=== PATIENT | male | born 2000 | race Caucasian/White ===

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

== ENCOUNTER 2021-04-17 14:13 | Emergency (ER) | payer OTHER, SELFPAY ==
[2021-04-17 16:32] LABS: Absolute Lymphocytes (CBC) 2.2 K/uL (0.7-4.9); Basophils % 0.7 % (0-1.3); Hematocrit 40.2 % (39.6-49.0); Lymphocytes % 21.5 % (15.3-44.8); MPV 8.7 fL (7.6-11.3); RBC Red Blood Cell Count 5.11 M/uL (4.33-5.43)
[2021-04-17 16:49] LABS: ALT/SGPT 36 U/L (12-78); AST/SGOT 14 U/L (15-37); Albumin 3.6 g/dL (3.4-5.0); Alkaline Phosphatase 150 U/L (45-117); BUN Blood Urea Nitrogen 8 mg/dL (7-18); Bicarbonate 28 mmol/L (21-32); Bilirubin Direct < 0.1 mg/dL (0-0.2); Bilirubin Total 0.3 mg/dL (0.2-1.0); Glucose Level 134 mg/dL (74-106); Lipase 76 U/L (73-393); Potassium 3.6 mmol/L (3.5-5.1); Protein, Total 8.4 g/dL (6.4-8.2); Sodium Level 139 mmol/L (136-145)
--- NOTE | 2021-04-17 17:08 | RAD REPORT ---
EXAM DESCRIPTION: Isaiah Single View04/17/2021 4:47 pm CLINICAL HISTORY: sob COMPARISON: 2013 FINDINGS: The lungs appear clear of acute infiltrate. The heart is normal size IMPRESSION: No acute abnormalities displayed
--- NOTE | 2021-04-17 17:24 | RAD REPORT ---
EXAM DESCRIPTION: CT - Abdomen Pelvis W Contrast - 04/17/2021 4:56 pm CLINICAL HISTORY: Abdominal pain COMPARISON: none. TECHNIQUE: Computed axial tomography of the abdomen pelvis was obtained. 100 cc Isovue-300 was admin istered intravenously. Oral contrast was not requested which limits evaluation of bowel. All CT scans are performed using dose optimization technique as appropriate and may include automated exposure control or mA/KV adjustment according to patient size. FINDINGS: The liver, spleen, pancreas, adrenal and kidneys appear unremarkable. There is no evidence of diverticulitis. Normal appendix Small hiatal hernia. Mild stranding within the central mesentery. IMPRESSION: Mild stranding within the central mesentery probably a mesenteritis
[2021-04-17 17:47] LABS: SARS-COV-2 RT PCR NEGATIVE (NEGATIVE)
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
--- NOTE | 2021-04-17 18:28 | EDPHYS ---
Physician Documentation [facility] Name: Mike Moon Age: 20 yrs Sex: Male : 2000 Arrival Date: 04/17/2021 Time: 14:20 Bed 13 Private MD: YAIMA Physician Marlon Lopez HPI: 04/17 15:55 This 20 yrs old Male presents to ER via Ambulatory with complaints of Cough, Breathing jmm Difficulty, Vomiting. 15:55 The patient or guardian reports cough. Onset: The symptoms/episode began/occurred jmm gradually, 2 day(s) ago. Modifying factors: The symptoms are alleviated by nothing, the symptoms are aggravated by cough. Associated signs and symptoms: Pertinent positives: chest pain, vomiting. The patient has not experienced similar symptoms in the past. Historical: - Allergies: 14:51 Varicella Virus Vaccine Live; ld1 - Home Meds: 14:51 None [Active]; ld1 - PMHx: 14:51 Fractured Skull; fractured collar bone; ld1 - PSHx: 14:51 None; ld1 - Immunization history:: Adult Immunizations not up to date, Client reports receiving the 2nd dose of the Covid vaccine. - Social history:: Smoking status: Patient denies any tobacco usage or history of. Patient/guardian denies using alcohol. ROS: 15:55 Constitutional: Positive for body aches, chills. jmm 15:55 Respiratory: Positive for cough. 15:55 Abdomen/GI: Positive for abdominal pain, nausea and vomiting. 15:55 All other systems are negative. Exam: 15:55 Constitutional: This is a well developed, well nourished patient who is awake, alert, jmm and in no acute distress. Head/Face: atraumatic. Eyes: EOMI, no conjunctival erythema appreciated ENT: Moist Mucus Membranes Neck: Trachea midline, Supple Chest/axilla: Normal chest wall appearance and motion. Cardiovascular: Regular rate and rhythm. No edema appreciated Respiratory: Normal respirations, no respiratory distress appreciated 15:55 Back: Normal ROM Skin: General appearance color normal MS/ Extremity: Moves all extremities, no obvious deformities appreciated, no edema noted to the lower extremities Neuro: Awake and alert, normal gait Psych: Behavior is normal, Mood is normal, Patient is cooperative and pleasant 15:55 Abdomen/GI: Inspection: abdomen appears normal, Bowel sounds: normal, Palpation: soft, moderate abdominal tenderness, in the right lower quadrant. Vital Signs: 14:50 BP 127 / 78; Pulse 100; Resp 18; Temp 98.4(O); Pulse Ox 100% on R/A; Weight 136.98 kg; ld1 Height 5 ft. 10 in. (177.80 cm); Pain 5/10; 16:05 BP 118 / 87; Pulse 102; Resp 20 S; Pulse Ox 99% on R/A; jg9 17:00 BP 97 / 71; Pulse 93; Resp 20; Pulse Ox 99% on R/A; jg9 18:24 BP 98 / 59; Pulse 104; Resp 17 S; Pulse Ox 99% on R/A; jg9 14:50 Body Mass Index 43.33 (136.98 kg, 177.80 cm) ld1 MDM: 15:31 Patient medically screened. jonathon 18:25 Data reviewed: vital signs, nurses notes. Counseling: I had a detailed discussion with cortney the patient and/or guardian regarding: the historical points, exam findings, and any diagnostic results supporting the discharge/admit diagnosis, lab results, radiology results, the need for outpatient follow up, to return to the emergency department if symptoms worsen or persist or if there are any questions or concerns that arise at home. ED course: Patient is alert and non toxic in appearance in the ED. Able to tolerate PO in the ED. Patient advised to follow up with pcp and otherwise given strict return precautions. . 12 15:55 Order name: Basic Metabolic Panel; Complete Time: 16:51 [facility] 04/17 15:55 Order name: CBC with Diff; Complete Time: 16:46 [facility] 04/17 15:55 Order name: Hepatic Function; Complete Time: 16:51 [facility] 04/17 15:55 Order name: Lipase; Complete Time: 16:51 [facility] 04/17 15:55 Order name: IV Saline Lock; Complete Time: 17:39 [facility] 04/17 15:55 Order name: Labs collected and sent; Complete Time: 17:39 [facility] 04/17 15:55 Order name: Chest Single View XRAY; Complete Time: 17:26 [facility] 04/17 15:55 Order name: CT Abd/Pelvis - IV Contrast Only; Complete Time: 17:26 [facility] 04/17 17:04 Order name: COVID-19/FLU A+B; Complete Time: 17:50 EDMS Administered Medications: No medications were administered Disposition: 04/18 10:33 Co-signature as Attending Physician, Marlon Lopez MD I agree with the assessment and jonathon plan of care. Disposition Summary: 04/17/21 18:28 Discharge Ordered Location: Home jm Condition: Stable jmm Diagnosis - Cough jmm - Vomiting jmm - Abdominal pain, unspecified jmm Followup: [facility] - With: Private Physician - When: 2 - 3 days - Reason: Recheck today's complaints, Continuance of care, Re-evaluation by your physician Discharge Instructions: - Discharge Summary Sheet jmm - Abdominal Pain, Adult jmm - Cough, Adult jmm - Vomiting, Adult jmm - Form - Return To Work jg9 Forms: - Medication Reconciliation Form jm - Thank You Letter jmm - Antibiotic Education jmm - Prescription Opioid Use [facility] Prescriptions: - promethazine-DM - take 10 milliliter by ORAL route every 4-6 hours; 200 milliliter; Refills: 0, jmm Product Selection Permitted Signatures: Dispatcher [employer] Marlon Brock MD MD cha Mickail, Joel, PA PA [facility] Sandee Hernández, RN RN ld1 Corrections: (The following items were deleted from the chart) 04/17 17:04 15:56 SARS-COV-2 RT PCR+MOL.[email or web address].BRZ ordered. EDOR EDOR 17:04 15:56 Influenza Screen (A \T\ B)+BA.LAB.BRZ ordered. EDOR EDMS
[2021-04-17 18:47] VITALS: TEMP 98.4
[2021-04-17 18:49] VITALS: O2SAT 99
[2021-04-17 18:52] VITALS: BP 98/59
== END 2021-04-17 18:42 | disposition home or self-care (01) ==
LOC: ER 14:13
DX: R05.9 Cough, unspecified (principal); R11.10 Vomiting, unspecified; R10.9 Unspecified abdominal pain; Z20.822 Contact with and (suspected) exposure to COVID-19
CPT/HCPCS: 85025; 80048; 36415; 80076; 83690; 0240U; 74177; 71045; 99283; Q9967

== ENCOUNTER 2021-05-27 21:44 | Emergency (ER) | payer OTHER ==
--- NOTE | 2021-05-27 23:19 | EDPHYS ---
Physician Documentation [facility] Name: Mike Moon Age: 21 yrs Sex: Male : 2000 Arrival Date: 05/27/2021 Time: 21:47 Bed Treatment Private MD: ED Physician Hima Enrique HPI: 05/27 22:39 This 21 yrs old Male presents to ER via Ambulatory with complaints of Hand Injury, Hand kb Swelling, Hand Pain. 22:39 The patient or guardian reports decreased range of motion, injury, pain, swelling, kb tenderness. The complaints affect the dorsum of right hand. Context: The problem was sustained at home, resulted from a direct blow. Onset: The symptoms/episode began/occurred just prior to arrival. Modifying factors: The symptoms are alleviated by nothing, the symptoms are aggravated by movement. Associated signs and symptoms: The patient has no apparent associated signs or symptoms. Severity of symptoms: At their worst the symptoms were mild, moderate, in the emergency department the symptoms are unchanged. The patient has not experienced similar symptoms in the past. The patient has not recently seen a physician. pt states he hit his hand on a piece of furniture. reports pain to dorsum of right hand near fifth digit. Historical: - Allergies: 22:15 Varicella Virus Vaccine Live; kd3 - Home Meds: 22:15 None [Active]; kd3 - PMHx: 22:15 fractured collar bone; Fractured Skull; Asthma; kd3 - PSHx: 22:15 None; kd3 - Immunization history:: Adult Immunizations not up to date. - Social history:: Smoking status: Reported history of juuling and/or vaping. ROS: 22:38 Constitutional: Negative for fever, chills, and weight loss. kb 22:38 MS/extremity: Positive for injury or acute deformity, pain, of the dorsum of right hand. 22:38 All other systems are negative. Exam: 22:39 Constitutional: This is a well developed, well nourished patient who is awake, alert, kb and in no acute distress. Head/Face: Normocephalic, atraumatic. Respiratory: Respirations even and unlabored. No increased work of breathing. Talking in full sentences Skin: Warm, dry with normal turgor. Normal color. Neuro: Awake and alert, GCS 15, oriented to person, place, time, and situation. Moves all extremities. Normal gait. Psych: Awake, alert, with orientation to person, place and time. Behavior, mood, and affect are within normal limits. 22:39 Musculoskeletal/extremity: Extremities: grossly normal except: noted in the dorsum of right hand: decreased ROM, pain, swelling, tenderness, ROM: limited active range of motion due to pain, in the right hand, Circulation is intact in all extremities. Sensation intact. Vital Signs: 22:11 BP 128 / 86; Pulse 98; Resp 16; Temp 98.1; Pulse Ox 100% on R/A; Weight 140.61 kg; kd3 Height 5 ft. 10 in. (177.80 cm); Pain 8/10; 22:11 Body Mass Index 44.48 (140.61 kg, 177.80 cm) kd3 Procedures: 05/28 00:35 Splinting: Splint applied to right hand using Orthoglass splint, applied by nurse. kb Examined by me, post splint application: neurovascular intact, 2+ distal pulses palpable, brisk capillary refill noted, Patient tolerated well. MDM: 05/27 22:13 Patient medically screened. kb 22:38 Data reviewed: vital signs, nurses notes. Data interpreted: Pulse oximetry: on room air kb is 100 %. Interpretation: normal. 23:17 Counseling: I had a detailed discussion with the patient and/or guardian regarding: the kb historical points, exam findings, and any diagnostic results supporting the discharge/admit diagnosis, radiology results, the need for outpatient follow up, a orthopedic surgeon, to return to the emergency department if symptoms worsen or persist or if there are any questions or concerns that arise at home. 05/27 22:13 Order name: Hand Right 3 View XRAY kb 05/27 23:17 Order name: Ulnar Gutter splint; Complete Time: 00:26 kb Administered Medications: No medications were administered Disposition: 05/28 02:00 Co-signature as Attending Physician, Hima Enrique MD. [email or web address] Disposition Summary: 05/27/21 23:18 Discharge Ordered Location: Home kb Condition: Stable kb Diagnosis - Avulsion fracture of proximal fifth metacarpal kb Followup: kb - With: Emergency Department - When: As needed - Reason: Worsening of condition Followup: kb - With: Private Physician - When: 2 - 3 days - Reason: Recheck today's complaints, Continuance of care, Re-evaluation by your physician Discharge Instructions: - Discharge Summary Sheet kb - Metacarpal Fracture, [id number] kb Forms: - Medication Reconciliation Form kb - Thank You Letter kb - Antibiotic Education kb - Prescription Opioid Use kb - Work release form lp1 Prescriptions: - Diclofenac Sodium 75 mg Oral tablet,delayed release (DR/EC) - take 1 tablet by ORAL route 2 times per day As needed; 30 tablet; Refills: 0, kb Product Selection Permitted Signatures: Dispatcher [employer] EDMS Mayuri Yanes, NUCLEAR MEDICINE CHIEF TECHNOLOGIST-C MAXIMILIANO-Hima Selby MD MD [email or web address] Carmencita Paz RN RN kd3
--- NOTE | 2021-05-27 23:19 | ER ---
Nurse's Notes [facility] Name: Mike Moon Age: 21 yrs Sex: Male : 2000 Arrival Date: 05/27/2021 Time: 21:47 Bed Treatment Private MD: Diagnosis: Avulsion fracture of proximal fifth metacarpal Presentation: 05/27 22:11 Chief complaint: Patient states: TAKING THE PUPPY FOR A WALK AND I SLIPPED AND HURT MY kd3 RIGHT HAND. Coronavirus screen: Vaccine status: Patient reports receiving the 2nd dose of the covid vaccine. Ebola Screen: No symptoms or risks identified at this time. Initial Sepsis Screen: Does the patient meet any 2 criteria? No. Patient's initial sepsis screen is negative. Does the patient have a suspected source of infection? No. Patient's initial sepsis screen is negative. Risk Assessment: Do you want to hurt yourself or someone else? Patient reports no desire to harm self or others. Onset of symptoms was May 27, 2021 at 21:00. 22:11 Method Of Arrival: Ambulatory kd3 22:11 Acuity: DARBY 4 kd3 Triage Assessment: 22:15 General: Appears in no apparent distress. Behavior is calm, cooperative, appropriate kd3 for age. Pain: Complains of pain in dorsal aspect of middle phalanx of right little finger, dorsal aspect of proximal phalanx of right little finger and dorsum of right hand. Musculoskeletal: Swelling present in right hand. Injury Description: Bruise sustained to right hand. Historical: - Allergies: 22:15 Varicella Virus Vaccine Live; kd3 - Home Meds: 22:15 None [Active]; kd3 - PMHx: 22:15 fractured collar bone; Fractured Skull; Asthma; kd3 - PSHx: 22:15 None; kd3 - Immunization history:: Adult Immunizations not up to date. - Social history:: Smoking status: Reported history of juuling and/or vaping. Screenin:18 Abuse screen: Denies threats or abuse. Denies injuries from another. Nutritional kd3 screening: No deficits noted. Tuberculosis screening: No symptoms or risk factors identified. Fall Risk None identified. Assessment: 05/28 00:30 Reassessment: Mayuri Yanes NP at bedside to assess splint and discuss discharge lp1 instructions and follow up for patient, significant other at bedside. 00:30 Neuro: Intact. Derm: Skin is pink, warm \T\ dry. Musculoskeletal: Circulation, motion, lp1 and sensation intact. Splint in place to right forearm/hand. Vital Signs: 05/27 22:11 BP 128 / 86; Pulse 98; Resp 16; Temp 98.1; Pulse Ox 100% on R/A; Weight 140.61 kg; kd3 Height 5 ft. 10 in. (177.80 cm); Pain 8/10; 22:11 Body Mass Index 44.48 (140.61 kg, 177.80 cm) kd3 ED Course: 21:47 Patient arrived in ED. jj6 21:53 Mayuri Yanes [facility]NP-C [facility]. kb 21:53 Hima Enrique MD is Attending Physician. kb 22:15 Triage completed. kd3 22:18 Arm band placed on left wrist. kd3 22:18 Patient has correct armband on for positive identification. kd3 22:18 No provider procedures requiring assistance completed. kd3 23:04 Hand Right 3 View XRAY In Process Unspecified. EDMS 05/28 00:06 Orthoglass splint: Ulnar gutter/Boxer splint applied on right forearm. oe 00:25 Josefina Guevara, RN is Primary Nurse. lp1 00:30 Patient did not have IV access during this emergency room visit. lp1 Administered Medications: No medications were administered Outcome: 05/27 23:18 Discharge ordered by . kb 05/28 00:30 Discharged to home ambulatory. lp1 Condition: good Discharge instructions given to patient, Instructed on discharge instructions, follow up and referral plans. medication usage, Demonstrated understanding of instructions, follow-up care, medications, splint care. 00:38 Patient left the ED. lp1 Signatures: Dispatcher [employer] EDNY Mayuri Yanes FNP-C DIRECTOR OF LOSS PREVENTION-Josefina Churchill, RN RN lp1 Hamilton Mcdermott Jennifer [email or web address] Carmencita Paz, RN RN kd3
[2021-05-28 00:43] VITALS: BP 128/86; TEMP 98.1; O2SAT 100
--- NOTE | 2021-05-28 07:47 | RAD REPORT ---
EXAM DESCRIPTION: RAD - Hand Right 3 View - 05/27/2021 11:04 pm CLINICAL HISTORY: PAIN COMPARISON: No comparisons FINDINGS/IMPRESSION: Age indeterminate launch gently oriented fracture through the proximal fifth me tacarpal with intra-articular extension. The fracture is minimally displaced. The fracture lines appe ar well corticated but recommend correlation with site of pain. No malalignment. No significant focal degenerative changes.
== END 2021-05-28 00:38 | disposition home or self-care (01) ==
LOC: ER 21:44
PROC: 2W3CX1Z Immobilization of Right Lower Arm using Splint (ICD-10-PCS; principal; 2021-05-28)
DX: S62.306A Unspecified fracture of fifth metacarpal bone, right hand, initial encounter for closed fracture (principal); W22.03XA Walked into furniture, initial encounter; Z88.7 Allergy status to serum and vaccine
CPT/HCPCS: 99283